=== PATIENT | female | born 1990 | race Caucasian/White ===

== ENCOUNTER 2016-11-07 19:16 | Emergency (ER) | payer OTHER ==
[2016-11-07 19:21] VITALS: BMI 26.6
[2016-11-07 19:49] VITALS: BP 109/53
[2016-11-07] MEDS ORDERED: PHENERGAN INJ 25 MG IV ONE (19:52)
[2016-11-07] MEDS ORDERED: DEMEROL INJ IVP ONE ×2 (19:52→23:29)
--- NOTE | 2016-11-07 19:55 | ED.ABDFE ---
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 - Complaint Chief Complaint:: RIGHT SIDED ABD PAIN, NAUSEA FOR 1 HOUR. - Source History Provided: Patient - Mode of arrival Mode of Arrival: Ambulatory - Timing Onset of Chief Complaint: 11/07/16 PMH - PMH Past Medical History: No Past Surgical History: Yes Surgical History: Cholecystectomy, [employer] Surgery - Family History History of Family Medical Conditions: No Family Medical History: [place], Coronary Artery Disease, Hypertension - Social History Does patient currently use any type of tobacco product: No Have you used tobacco products in the last 12 months: No Type of Tobacco Use: None Does any household member use tobacco: No Alcohol Use: None Do you use any recreational Drugs:: No Lives With: Family Lives Where: Home - infectious screening Have you traveled outside the country in the last 6 months?: No Isolation: Standard ROS - Review of Systems Constitutional: Fever, Malaise Respiratoy: No Symptoms Reported Cardiovascular: No Symptoms Reported Gastrointestinal/Abdominal: See HPI Genitourinary: No Symptoms Reported Neurological: No Symptoms Reported Integumentary: No Symptoms Reported PE - Vital Signs Vitals: Temperature 98.1 F Pulse Rate 75 Respiratory Rate 16 Blood Pressure [Right Arm] 102/53 Blood Pressure [Left Arm] 99/64 Blood Pressure 109/53 O2 Sat by Pulse Oximetry 97 - General Limitations: No Limitations General Appearance: In Distress (mild pain) - Head Head Exam: Normal Inspection - Eyes Eye exam: Normal Appearance - Neck Neck Exam: Normal Inspection - Chest Chest Inspection: Normal Inspection - Respiratory Respiratory Exam: Normal Lung Sounds Bilat Respiratory Exam: Bilateral Clear to Auscultation - Cardiovascular Cardiovascular Exam: Regular Rate, Normal Rhythm - Abdominal Exam Abdominal Exam: Normal Inspection, Normal Bowel Sounds, Soft Abdominal Tenderness: RLQ, Suprapubic, Moderate - Extremeties Extremities Exam: Normal Inspection Course - Reevaluation 1st: Improved (pain still /) ROR - Labs Reviewed Result Diagrams: 11/07/16 20:10 11/07/16 20:10 Laboratory: WBC 9.0 X10^3/uL (3.6-10.0) 11/07/16 20:10 RBC 4.83 X10^6/uL (3.5-5.4) 11/07/16 20:10 Hgb 14.1 g/dL (12.0-16.0) 11/07/16 20:10 Hct 42.1 % (36.0-47.0) 11/07/16 20:10 MCV 87.2 fL (80.0-100.0) 11/07/16 20:10 MCH 29.1 pg (27.0-34.0) 11/07/16 20:10 MCHC 33.4 g/dL (33.0-35.0) 11/07/16 20:10 RDW 15.6 % (11.6-16.5) 11/07/16 20:10 Plt Count 208 X10^3/uL (150.0-450.0) 11/07/16 20:10 MPV 7.7 fL (7.4-11.0) 11/07/16 20:10 Neut % 63.2 % (42.0-75.0) 11/07/16 20:10 Lymph % 26.8 % (21.0-51.0) 11/07/16 20:10 [place] % 7.0 % (0.0-13.0) 11/07/16 20:10 Eos % 2.7 % (0.9-2.9) 11/07/16 20:10 Baso % 0.3 % (0.2-1.0) 11/07/16 20:10 Neut # 5.7 x10^3/uL (2.2-4.8) H 11/07/16 20:10 Lymph # 2.4 X10^3/uL (1.3-2.9) 11/07/16 20:10 [place] # 0.6 x10^3/uL (0.3-0.8) 11/07/16 20:10 Eos # 0.2 x10^3/uL (0.0-0.2) 11/07/16 20:10 Baso # 0.0 X10^3/uL (0.0-0.1) 11/07/16 20:10 Absolute Nucleated RBC 0.0 /100WBC 11/07/16 20:10 Sodium 144 mmol/L (136-145) 11/07/16 20:10 Corrected Sodium TNP 11/07/16 20:10 Potassium 3.5 mmol/L (3.5-5.1) 11/07/16 20:10 Chloride 108 mmol/L (98-107) H 11/07/16 20:10 Carbon Dioxide 24.9 mmol/L (21-32) 11/07/16 20:10 BUN 14 mg/dL (7-18) 11/07/16 20:10 Creatinine 0.69 mg/dL (0.55-1.02) 11/07/16 20:10 Est GFR (MDRD) Af Amer > 60 (>60) 11/07/16 20:10 Est GFR (MDRD) Non-Af > 60 (>60) 11/07/16 20:10 Glucose 105 mg/dL (65-99) H 11/07/16 20:10 Calcium 8.8 mg/dL (8.5-10.1) 11/07/16 20:10 Corrected Calcium TNP 11/07/16 20:10 Total Bilirubin 0.30 mg/dL (0.2-1.0) 11/07/16 20:10 AST 12 Units/L (15-37) L 11/07/16 20:10 ALT 18 Units/L (12-78) 11/07/16 20:10 Alkaline Phosphatase 70 Units/L (46-116) 11/07/16 20:10 Total Protein 7.6 g/dL (6.4-8.2) 11/07/16 20:10 Albumin 4.1 g/dL (3.4-5.0) 11/07/16 20:10 Globulin 3.5 g/dL (2.5-4.5) 11/07/16 20:10 Albumin/Globulin Ratio 1.2 Ratio (1.1-2.1) 11/07/16 20:10 - XRAY XRAY Interpreted by: Radiologist (sigmoid/descending colitis) - Diagnosis Discharge Problem: Colitis, acute - Discharge Plan Disposition: HOME, SELF-CARE Condition: Stable Prescriptions: Hydrocodone-Acet 5 mg/325 mg [NORCO 5 MG/325 MG *] 1 tab PO Q6H PRN #12 tab PRN Reason: Pain Metronidazole [Flagyl Tab 500 mg] 500 mg PO TID #30 tab Promethazine HCl [PHENERGAN TAB 25 MG *] 25 mg PO Q8H PRN #12 tab PRN Reason: Nausea/Vomiting - Follow ups/Referrals Follow ups/Referrals: NFD,None [Primary Care Provider] - 3 days GUSTAVO YAP [STAFF PHYSICIAN] - 3 days - Instructions Instructions: Colitis Additional Instructions: push fluids
[2016-11-07] MEDS ORDERED: PHENERGAN INJ 25 MG ONE (20:04)
[2016-11-07] MEDS ORDERED: DEMEROL INJ ONE ×2 (20:05→23:31)
[2016-11-07 20:19] LABS: BASOPHILS % (AUTO) 0.3 % (0.2-1.0); EOSINOPHILS # (AUTO) 0.2 x10^3/uL (0.0-0.2); EOSINOPHILS % (AUTO) 2.7 % (0.9-2.9); HEMATOCRIT 42.1 % (36.0-47.0); HEMOGLOBIN 14.1 g/dL (12.0-16.0); LYMPHOCYTES # (AUTO) 2.4 X10^3/uL (1.3-2.9); LYMPHOCYTES % (AUTO) 26.8 % (21.0-51.0); MEAN CORPUSCULAR HEMOGLOBIN 29.1 pg (27.0-34.0); MEAN CORPUSCULAR HGB CONC 33.4 g/dL (33.0-35.0); MEAN CORPUSCULAR VOLUME 87.2 fL (80.0-100.0); MEAN PLATELET VOLUME 7.7 fL (7.4-11.0); MONOCYTES # (AUTO) 0.6 x10^3/uL (0.3-0.8); NEUTROPHILS # (AUTO) 5.7 x10^3/uL (2.2-4.8); NEUTROPHILS % (AUTO) 63.2 % (42.0-75.0); PLATELET COUNT 208 X10^3/uL (150.0-450.0); RED BLOOD COUNT 4.83 X10^6/uL (3.5-5.4); RED CELL DISTRIBUTION WIDTH 15.6 % (11.6-16.5)
[2016-11-07 20:35] LABS: ALANINE AMINOTRANSFERASE 18 Units/L (12-78); ALBUMIN 4.1 g/dL (3.4-5.0); ALKALINE PHOSPHATASE 70 Units/L (46-116); ASPARTATE AMINO TRANSFERASE 12 Units/L (15-37); BLOOD UREA NITROGEN 14 mg/dL (7-18); CALCIUM 8.8 mg/dL (8.5-10.1); CARBON DIOXIDE 24.9 mmol/L (21-32); CHLORIDE 108 mmol/L (98-107); CREATININE 0.69 mg/dL (0.55-1.02); GLUCOSE 105 mg/dL (65-99); SODIUM 144 mmol/L (136-145); TOTAL PROTEIN 7.6 g/dL (6.4-8.2); eGFR BLACK RACES > 60 (>60); eGFR NON BLACK RACES > 60 (>60)
[2016-11-07] MEDS ORDERED: NS 100 ML IV 100 ML IV ONE (22:19)
--- NOTE | 2016-11-07 23:18 | CT ---
CT abdomen and pelvis with contrast Indication: Right lower quadrant pain and nausea. Technique: Helical images through the abdomen and pelvis after IV and oral contrast per protocol. Co felipe and sagittal reformats provided. Findings: Limited images through lower chest shows no acute abnormality. Review of bone windows show s no osseous lesion. Abdomen: The liver, spleen and pancreas are normal. The gallbladder is absent. The adrenal glands ar e normal. Stomach and small bowel are normal without obstruction to the flow of contrast seen. Vascu lature is normal. Kidneys are normal with small left renal cyst incidentally noted. There is hyper enhancement of the rectum and sigmoid colon minimally. The left ureter is prominent. No obstructing stone seen. Pelvis: The urinary bladder and rectum are normal. Uterus adnexae show no acute abnormality. She the appendix is normal. Impression: 1. Mild hyper enhancement of the rectum wall suggest colitis. Correlate clinically. Similar findings are seen in the sigmoid and descending colon. 2. Normal appendix. 3. Prominence of the left ureter without obstructing lesion. Vesicoureteral reflux is possible. Reported By:
[2016-11-07] MEDS ORDERED: FLAGYL IV PREMIX 500 MG BAG 500 MG/100 ML BAG IV ONE ×2 (23:29→23:31)
== END 2016-11-08 00:28 | disposition home or self-care (01) ==
LOC: ER 19:16
DX: K52.89 Other specified noninfective gastroenteritis and colitis (principal); R10.31 Right lower quadrant pain
CPT/HCPCS: 36415; 74177; 80053; 85025; 96365; 96374; 96375; 99283; A4222; S0030; J2175; J2550

== ENCOUNTER 2016-11-16 01:28 | Emergency (ER) | payer OTHER ==
[2016-11-16 01:33] VITALS: BP 125/62; BMI 26.6
--- NOTE | 2016-11-16 01:56 | DR.GENAD ---
HPI - PCP Primary Care Physician: NFD - Complaint/Symptoms Chief Complaint Doctors Comments: Agree with statement, she denies a history of cardiopulmonary disease. She admtis to a history of anxiety. Patient has two children youngest is four months old. Father of child lives in [place], comes around every now and then. Her other child has different dad. one has no contact with patient nor child. Chief Complaint:: PT STATES SHE IS HAVING SHARP, CONSTANT CHEST PAIN ON THE LEFT SIDE. PT STATES PAIN IS RADIATING INTO HER BACK. PT STATES IT HURTS TO BREATHE. 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 - Family History History of Family Medical Conditions: Yes Family Medical History: [place], Coronary Artery Disease, Hypertension - Social History Type of Tobacco Use: Cigarettes Alcohol Use: None Do you use any recreational Drugs:: No Lives With: Family Lives Where: Home - infectious screening In the last 2 months have you had wt loss of >10#?: NO Have you had fever, night sweats or hemotysis?: No Have you traveled outside the country in the last 6 months?: No Isolation: Standard ROS - Review of Systems Eyes: No Symptoms Reported ENTM: No Symptoms Reported Respiratoy: No Symptoms Reported Cardiovascular: No Symptoms Reported Gastrointestinal/Abdominal: No Symptoms Reported Genitourinary: No Symptoms Reported Neurological: No Symptoms Reported Musculoskeletal: No Symptoms Reported Integumentary: No Symptoms Reported Hematologic/Lymphatic: No Symptoms Reported Endocrine: No Symptoms Reported Psychiatric: No Symptoms Reported All Other Systems: Reviewed and Negative PE - Vital Signs Vitals: Temperature 98.3 F Pulse Rate 78 Respiratory Rate 22 Blood Pressure [Right Arm] 102/53 Blood Pressure [Left Arm] 99/64 Blood Pressure 125/62 O2 Sat by Pulse Oximetry 98 - General Limitations: No Limitations General Appearance: Alert, In No Apparent Distress - Eyes Eye exam: Normal Appearance, PERRL, EOMI - ENT ENT Exam: Normal Exam, Normal Oropharynx External Ear Exam: Normal External Inspection TM/Canal Exam: Bilateral Normal Nose Exam: Normal Nose Exam Mouth Exam: Normal Inspection Throat Exam: Normal Inspection - Neck Neck Exam: Normal Inspection - Chest Chest Inspection: Normal Inspection - Respiratory Respiratory Exam: Normal Lung Sounds Bilat Respiratory Exam: Bilateral Clear to Auscultation - Cardiovascular Cardiovascular Exam: Regular Rate, Normal Rhythm - Abdominal Exam Abdominal Exam: Normal Inspection, Normal Bowel Sounds Abdominal Tenderness: negative: RUQ, RLQ, LUQ, LLQ, Epigastrium, Suprapubic, Diffuse, Mild, Moderate, Severe, Other - Extremities Extremities Exam: Normal Inspection - Back Back Exam: Normal Inspection, Full ROM - Neurologic Neurological Exam: Alert, Oriented X3, CN II-XII Intact - Skin Skin Exam: Warm, Dry, Intact Course - Reevaluation 1st: Improved ROR - Labs Reviewed Result Diagrams: 11/16/16 02:05 11/16/16 02:05 Laboratory: WBC 10.2 X10^3/uL (3.6-10.0) H 11/16/16 02:05 RBC 4.89 X10^6/uL (3.5-5.4) 11/16/16 02:05 Hgb 14.2 g/dL (12.0-16.0) 11/16/16 02:05 Hct 42.6 % (36.0-47.0) 11/16/16 02:05 MCV 87.0 fL (80.0-100.0) 11/16/16 02:05 MCH 29.0 pg (27.0-34.0) 11/16/16 02:05 MCHC 33.3 g/dL (33.0-35.0) 11/16/16 02:05 RDW 15.0 % (11.6-16.5) 11/16/16 02:05 Plt Count 211 X10^3/uL (150.0-450.0) 11/16/16 02:05 MPV 7.9 fL (7.4-11.0) 11/16/16 02:05 Neut % 52.6 % (42.0-75.0) 11/16/16 02:05 Lymph % 36.7 % (21.0-51.0) 11/16/16 02:05 [place] % 6.2 % (0.0-13.0) 11/16/16 02:05 Eos % 3.9 % (0.9-2.9) H 11/16/16 02:05 Baso % 0.6 % (0.2-1.0) 11/16/16 02:05 Neut # 5.3 x10^3/uL (2.2-4.8) H 11/16/16 02:05 Lymph # 3.7 X10^3/uL (1.3-2.9) H 11/16/16 02:05 [place] # 0.6 x10^3/uL (0.3-0.8) 11/16/16 02:05 Eos # 0.4 x10^3/uL (0.0-0.2) H 11/16/16 02:05 Baso # 0.1 X10^3/uL (0.0-0.1) 11/16/16 02:05 Absolute Nucleated RBC 0.1 /100WBC 11/16/16 02:05 D-Dimer 767 ng/mL (0-400) H* 11/16/16 02:05 Sodium 143 mmol/L (136-145) 11/16/16 02:05 Corrected Sodium TNP 11/16/16 02:05 Potassium 4.0 mmol/L (3.5-5.1) 11/16/16 02:05 Chloride 107 mmol/L (98-107) 11/16/16 02:05 Carbon Dioxide 24.6 mmol/L (21-32) 11/16/16 02:05 BUN 11 mg/dL (7-18) 11/16/16 02:05 Creatinine 0.74 mg/dL (0.55-1.02) 11/16/16 02:05 Est GFR (MDRD) Af Amer > 60 (>60) 11/16/16 02:05 Est GFR (MDRD) Non-Af > 60 (>60) 11/16/16 02:05 Glucose 85 mg/dL (65-99) 11/16/16 02:05 Calcium 9.0 mg/dL (8.5-10.1) 11/16/16 02:05 - XRAY XRAY Interpreted by: Radiologist (Chest: negative, CTA no evidence of blood clot ) - Diagnosis Discharge Problem: Anxiety and depression - Discharge Plan Condition: Stable - Follow ups/Referrals Follow ups/Referrals: NFD,None [Primary Care Provider] - 3 days - Instructions
[2016-11-16] MEDS ORDERED: DUONEB 0.5 MG/3 MG NEB ONE (01:58)
[2016-11-16] MEDS ORDERED: NS 1000 ML 1,000 ML ONE (02:02)
[2016-11-16] MEDS ORDERED: DUONEB 0.5 MG/3 MG ONE (02:10)
[2016-11-16 02:24] LABS: BASOPHILS # (AUTO) 0.1 X10^3/uL (0.0-0.1); BASOPHILS % (AUTO) 0.6 % (0.2-1.0); EOSINOPHILS # (AUTO) 0.4 x10^3/uL (0.0-0.2); EOSINOPHILS % (AUTO) 3.9 % (0.9-2.9); HEMATOCRIT 42.6 % (36.0-47.0); HEMOGLOBIN 14.2 g/dL (12.0-16.0); LYMPHOCYTES # (AUTO) 3.7 X10^3/uL (1.3-2.9); LYMPHOCYTES % (AUTO) 36.7 % (21.0-51.0); MEAN CORPUSCULAR HGB CONC 33.3 g/dL (33.0-35.0); MEAN PLATELET VOLUME 7.9 fL (7.4-11.0); MONOCYTES # (AUTO) 0.6 x10^3/uL (0.3-0.8); MONOCYTES % (AUTO) 6.2 % (0.0-13.0); NEUTROPHILS # (AUTO) 5.3 x10^3/uL (2.2-4.8); NEUTROPHILS % (AUTO) 52.6 % (42.0-75.0); PLATELET COUNT 211 X10^3/uL (150.0-450.0); RED BLOOD COUNT 4.89 X10^6/uL (3.5-5.4); WHITE BLOOD COUNT 10.2 X10^3/uL (3.6-10.0)
[2016-11-16 02:26] LABS: BLOOD UREA NITROGEN 11 mg/dL (7-18); CARBON DIOXIDE 24.6 mmol/L (21-32); CHLORIDE 107 mmol/L (98-107); CREATININE 0.74 mg/dL (0.55-1.02); GLUCOSE 85 mg/dL (65-99); SODIUM 143 mmol/L (136-145); eGFR BLACK RACES > 60 (>60); eGFR NON BLACK RACES > 60 (>60)
--- NOTE | 2016-11-16 02:35 | RAD ---
EXAM: Chest X-ray INDICATION: Chest pain COMPARISION: No recent prior TECHNIQUE: PA and Lat, 2 view FINDINGS: The lungs are clear and the lung volumes are within normal limits. No pleural effusion or pneumothor ax. The cardiac silhouette and mediastinum are normal. The regional skeleton is intact. IMPRESSION: Normal Chest X-Ray Reported By:
[2016-11-16] MEDS ORDERED: ATIVAN INJ 2 MG VIAL IVP ONE (02:47)
[2016-11-16 02:52] LABS: D DIMER 767 ng/mL (0-400)
[2016-11-16] MEDS ORDERED: ATIVAN INJ 2 MG VIAL ONE (02:54)
[2016-11-16] MEDS ORDERED: NS 1000 ML 1,000 ML IV SCH (03:00)
[2016-11-16] MEDS ORDERED: NS 100 ML IV 100 ML IV ONE (03:15)
--- NOTE | 2016-11-16 03:45 | CT ---
EXAM: CTA CHEST WITH CONTRAST INDICATION: Chest pain and shortness of breath COMPARISION: No priors for comparison TECHNIQUE: Spiral CT of the chest was performed with contrast. Thin reconstructions in the axial and para-coron al planes were obtained as well as 3D reconstructions. The patient received intravenous contrast wi thout adverse reaction. FINDINGS: The heart size is normal. There is no evidence of a pulmonary embolism. The aorta is normal in calib er. No evidence of dissection or aneurysm. No mediastinal or hilar mass or adenopathy. The lungs are clear. No evidence of bullous disease or pulmonary fibrosis. No lung mass, consolidati on, or suspicious pulmonary nodule. No pleural effusion or pneumothorax identified. The regional ske leton is intact. IMPRESSION: Normal CT angiogram of the chest Reported By:
== END 2016-11-16 04:31 | disposition home or self-care (01) ==
LOC: ER 01:28
DX: F41.8 Other specified anxiety disorders (principal); F32.89 Other specified depressive episodes
CPT/HCPCS: 36415; 71020; 71275; 80048; 85025; 85378; 96365; 96367; 96374; 99283; A4222; J2060; J7620

== ENCOUNTER → 2017-02-28 | Outpatient (CLI) | payer OTHER ==
--- NOTE | 2017-02-28 12:12 | US ---
HISTORY: Abnormal thyroid function test Study: Thyroid sonogram Comparison: None Technique: Multiple grayscale sonographic images were obtained. Findings: The right lobe measured 4.4 x 1.2 x 1.3 centimeters, the isthmus 3.5 millimeters. And the left lobe 4.5 x 1.3 x 1.5 centimeters. No nodules cysts or masses are noted in the right lobe or the isthmus. Within the left thyroid lobe there is a 7.6 x 10.2 millimeter by 1.45 centimeter complex nodule whic h does not quite yet meet the criteria for fine needle aspiration. There are no associated small wayne cification. The nodule is not hypervascular . Follow up ultrasound in 6 months is recommended for re -evaluation. IMPRESSION: 7.6 x 10.2 x 14.5 millimeter complex left thyroid nodule which does not yet meet criteria for fine n eedle aspiration which should be followed sonographically in 6 months. Reported By:
== END ==
LOC: RAD 10:32
PROVIDERS: ATTEND Nurse Practitioner Family
DX: R94.6 Abnormal results of thyroid function studies (principal)
CPT/HCPCS: 76536

== ENCOUNTER 2017-03-29 10:54 | Emergency (ER) | payer OTHER ==
[2017-03-29 10:58] VITALS: BP 114/67; BMI 26.6
[2017-03-29] MEDS ORDERED: TORADOL 60 MG VIAL IM ONE (12:43)
[2017-03-29] MEDS ORDERED: TORADOL 60 MG VIAL ONE (12:45)
--- NOTE | 2017-03-29 12:47 | DR.GENAD ---
HPI - PCP Primary Care Physician: PATRICE - Complaint/Symptoms Chief Complaint Doctors Comments: Patient states she got angry with her old man and hit the door with her right hand. Chief Complaint:: "RIGHT HAND HURTING AFTER PUNCHING A DOOR" - Source History Provided: Patient - Mode of Arrival Mode of Arrival: Ambulatory - Timing Onset of Chief Complaint: 03/29/17 PMH - PMH Past Medical History: Yes Past Medical History: Anxiety Past Surgical History: Yes Surgical History: , Cholecystectomy Past Surgical History Comment: CYST REMOVED - Family History History of Family Medical Conditions: Yes Family Medical History: Diabetes Mellitus, Cancer, [place], Coronary Artery Disease, Heart Failure, Sudden Cardiac , Hypertension - Social History Does patient currently use any type of tobacco product: Yes Have you used tobacco products in the last 12 months: Yes Type of Tobacco Use: Cigarettes How many years tobacco product used: 2 Does any household member use tobacco: No Alcohol Use: None Do you use any recreational Drugs:: No Lives With: Family Lives Where: Home - infectious screening In the last 2 months have you had wt loss of >10#?: NO Have you had fever, night sweats or hemotysis?: No Have you traveled outside the country in the last 6 months?: No Isolation: Standard ROS - Review of Systems Eyes: No Symptoms Reported ENTM: No Symptoms Reported Respiratoy: No Symptoms Reported Cardiovascular: No Symptoms Reported Gastrointestinal/Abdominal: No Symptoms Reported Genitourinary: No Symptoms Reported Neurological: No Symptoms Reported Musculoskeletal: No Symptoms Reported, Hand (right dorsum lateral three digits tender and discolored) Integumentary: No Symptoms Reported Hematologic/Lymphatic: No Symptoms Reported Endocrine: No Symptoms Reported Psychiatric: No Symptoms Reported All Other Systems: Reviewed and Negative PE - Vital Signs Vitals: Temperature 98.6 F Pulse Rate 80 Respiratory Rate 20 Blood Pressure [Right Arm] 102/53 Blood Pressure [Left Arm] 99/64 Blood Pressure 114/67 O2 Sat by Pulse Oximetry 99 - General General Appearance: Alert, In No Apparent Distress - Head Head Exam: Normal Inspection, Atraumatic - Eyes Eye exam: Normal Appearance, PERRL, EOMI - ENT ENT Exam: Normal Exam External Ear Exam: Normal External Inspection TM/Canal Exam: Bilateral Normal Nose Exam: Normal Nose Exam Mouth Exam: Normal Inspection Throat Exam: Normal Inspection - Neck Neck Exam: Normal Inspection - Chest Chest Inspection: Normal Inspection - Respiratory Respiratory Exam: Normal Lung Sounds Bilat Respiratory Exam: Bilateral Clear to Auscultation - Cardiovascular Cardiovascular Exam: Regular Rate, Normal Rhythm - Extremities Extremities Exam: Normal Inspection, Full ROM - Back Back Exam: Normal Inspection, Full ROM - Neurologic Neurological Exam: Alert, Oriented X3, CN II-XII Intact - Psychiatric Psychiatric Exam: Normal Affect - Skin Skin Exam: Warm, Dry, Other (bluish discoloration of dorsum right hand with edema) ROR - XRAY XRAY Interpreted by: Radiologist (Right hand: no fracture) - Diagnosis Discharge Problem: Contusion of hand, right Qualifiers: Encounter type: initial encounter Qualified Code(s): S60.221A - Contusion of right hand, initial encounter - Discharge Plan Condition: Stable - Follow ups/Referrals Follow ups/Referrals: NFD,None [Primary Care Provider] - 3 days - Instructions
--- NOTE | 2017-03-29 12:52 | RAD ---
HISTORY: Injury, blunt trauma Study: Right hand AP, lateral, obliques Comparison: None Findings: No acute cortical disruption or dislocation is identified. The soft tissues appear unremarkable. Th e carpal bones appear aligned without evidence for fracture. the joints are normal. IMPRESSION: 1. Negative exam. Reported By:
== END 2017-03-29 14:17 | disposition home or self-care (01) ==
LOC: ER 11:23
DX: S60.221A Contusion of right hand, initial encounter (principal); X58.XXXA Exposure to other specified factors, initial encounter; Y92.9 Unspecified place or not applicable
CPT/HCPCS: 73130; 96372; 99282; J1885

== ENCOUNTER 2017-07-18 15:18 | Emergency (ER) | payer OTHER ==
[2017-07-18 15:22] VITALS: BP 120/76; BMI 27.8
[2017-07-18] MEDS ORDERED: TORADOL 60 MG VIAL IM ONE (16:12)
[2017-07-18] MEDS ORDERED: TORADOL 60 MG VIAL ONE (16:14)
--- NOTE | 2017-07-18 16:20 | RAD ---
ELBOW RADIOGRAPHS CLINICAL HISTORY: 26-year-old female status post fall with left elbow pain COMPARISON: None. FINDINGS: 3 views of the left elbow demonstrate no acute fracture or malalignment. The joint spaces are maintained. There is no joint effusion. Mild edema about the elbow. The mineralization is normal . There is no aggressive bone lesion or abnormal periosteal reaction. There is no soft tissue calci fication or gas. IMPRESSION: No acute fracture or osseous abnormality demonstrated on left elbow radiographs with mild edema prese nt. Reported By:
--- NOTE | 2017-07-18 16:30 | DR.EXTPAIN ---
HPI - PCP Primary Care Physician: OCHOA - Complaint/Symptoms Chief Complaint:: PT C/O ROUGH HOUSING AND THAT SHE FELL ON HER LEFT ELBOW,,,, EDEMA NOTED NO OBVIOUS DEFOMITY NOTED . - Nurses notes reviewed Nurses Notes Review: Yes - Source History Provided: Patient - Mode of arrival Mode of Arrival: Ambulatory - Timing Onset of Chief Complaint: 07/18/17 PMH - PMH Past Medical History: Yes Past Medical History: Anxiety Past Surgical History: Yes Surgical History: , Cholecystectomy - Family History History of Family Medical Conditions: No Family Medical History: Diabetes Mellitus, Cancer, [place], Coronary Artery Disease, Heart Failure, Sudden Cardiac , Hypertension - Social History Does patient currently use any type of tobacco product: Yes Have you used tobacco products in the last 12 months: Yes Type of Tobacco Use: Cigarettes How many years tobacco product used: 1 Does any household member use tobacco: No Alcohol Use: None Do you use any recreational Drugs:: No Lives With: Family - infectious screening In the last 2 months have you had wt loss of >10#?: NO Have you had fever, night sweats or hemotysis?: No Have you traveled outside the country in the last 6 months?: No Isolation: Standard PE - Vital Signs Vitals: Temperature 97.2 F Pulse Rate 117 Respiratory Rate 18 Blood Pressure [Right Arm] 102/53 Blood Pressure [Left Arm] 99/64 Blood Pressure 120/76 O2 Sat by Pulse Oximetry 98 - Discharge Plan Condition: Stable Prescriptions: Ibuprofen [MOTRIN TAB 600 MG *] 600 mg PO TID PRN #20 tab PRN Reason: Pain/Inflammation Tramadol HCl 50 mg PO Q8H PRN #15 tablet PRN Reason: - Follow ups/Referrals Follow ups/Referrals: OCHOA REYEZ [Primary Care Provider] - 3 days - Instructions Instructions: Musculoskeletal Pain, Joint Pain, [id number] Additional Instructions: RETURN TO ED IF WORSE.
== END 2017-07-18 17:08 | disposition home or self-care (01) ==
LOC: ER 15:27
DX: M79.1 Myalgia (principal); M25.50 Pain in unspecified joint; W19.XXXA Unspecified fall, initial encounter; Y92.9 Unspecified place or not applicable
CPT/HCPCS: 73070; 96372; 99282; J1885

== ENCOUNTER 2017-10-16 22:50 | Emergency (ER) | payer OTHER ==
[2017-10-16 23:12] VITALS: BMI 26.4
[2017-10-16 23:32] LABS: BILIRUBIN,URINE NEGATIVE (NEGATIVE); BLOOD/HEMOGLOBIN,URINE 1+ (NEGATIVE); GLUCOSE, URINE NEGATIVE (NEGATIVE); KETONES,URINE 2+ (NEGATIVE); LEUKOCYTE ESTERASE ,URINE 1+ (NEGATIVE); NITRITES,URINE NEGATIVE (NEGATIVE); PROTEIN,URINE NEGATIVE (NEGATIVE); UROBILINOGEN,URINE NORMAL (NORMAL)
[2017-10-16 23:36] LABS: BASOPHILS # (AUTO) 0.1 X10^3/uL (0.0-0.1); BASOPHILS % (AUTO) 0.5 % (0.2-1.0); EOSINOPHILS # (AUTO) 0.1 x10^3/uL (0.0-0.2); EOSINOPHILS % (AUTO) 1.2 % (0.9-2.9); HEMATOCRIT 39.5 % (36.0-47.0); HEMOGLOBIN 13.4 g/dL (12.0-16.0); LYMPHOCYTES # (AUTO) 2.7 X10^3/uL (1.3-2.9); LYMPHOCYTES % (AUTO) 23.7 % (21.0-51.0); MEAN CORPUSCULAR HEMOGLOBIN 30.7 pg (27.0-34.0); MEAN CORPUSCULAR HGB CONC 33.9 g/dL (33.0-35.0); MEAN CORPUSCULAR VOLUME 90.7 fL (80.0-100.0); MEAN PLATELET VOLUME 7.6 fL (7.4-11.0); MONOCYTES # (AUTO) 0.7 x10^3/uL (0.3-0.8); MONOCYTES % (AUTO) 6.1 % (0.0-13.0); NEUTROPHILS # (AUTO) 7.9 x10^3/uL (2.2-4.8); NEUTROPHILS % (AUTO) 68.5 % (42.0-75.0); PLATELET COUNT 226 X10^3/uL (150.0-450.0); RED BLOOD COUNT 4.36 X10^6/uL (3.5-5.4); RED CELL DISTRIBUTION WIDTH 14.2 % (11.6-16.5); WHITE BLOOD COUNT 11.5 X10^3/uL (3.6-10.0)
[2017-10-16 23:41] LABS: APPEARANCE,URINE CLEAR (CLEAR); COLOR,URINE YELLOW (YELLOW)
[2017-10-16] MEDS ORDERED: NS 1000 ML 1,000 ML IV ONE (23:41)
[2017-10-16 23:42] LABS: BACTERIA,URINE TRACE /HPF (NEGATIVE); MUCUS,URINE FEW /HPF (NEGATIVE); SQUAMOUS EPITHELIAL CELL,UR FEW /HPF (NEGATIVE)
--- NOTE | 2017-10-16 23:46 | DR.GENAD ---
HPI - HPI Comment HPI Comment: A , 27 y/o female presenting with information of being aware of being 4 days ago. She developed suprapubic cramping 2 days ago. There is associated vagginal spotting- using 2 female pads per day. She does not remember date of her LNMP as she in on Depo-shots. Also, she quit smoking 4 days ago upon her home pregnacy test being positive. - Complaint/Symptoms Chief Complaint:: PT STATES" I JUST FOUND OUT I WAS A FEW DAYS AGO AND I'M HAVING ABD CRAMPING AND SPOTTING FOR 2 DAYS" - Nurses notes reviewed Nurses Notes Review: Yes - Source History Provided: Patient - Mode of Arrival Mode of Arrival: Ambulatory - Timing Onset of Chief Complaint: 10/14/17 PMH - PMH Past Medical History: Yes Past Medical History: Anxiety Past Surgical History: Yes Surgical History: , Cholecystectomy, [facility] Surgery - Family History History of Family Medical Conditions: Yes Family Medical History: Diabetes Mellitus, Cancer, [place], Coronary Artery Disease, Heart Failure, Sudden Cardiac , Hypertension - Social History Type of Tobacco Use: Cigarettes Does any household member use tobacco: Yes Alcohol Use: None Do you use any recreational Drugs:: No Lives With: Family Lives Where: Home - infectious screening In the last 2 months have you had wt loss of >10#?: NO Have you had fever, night sweats or hemotysis?: No Have you traveled outside the country in the last 6 months?: No Isolation: Standard ROS - Review of Systems Constitutional: No Symptoms Reported Eyes: No Symptoms Reported ENTM: No Symptoms Reported Respiratoy: No Symptoms Reported Cardiovascular: No Symptoms Reported Gastrointestinal/Abdominal: No Symptoms Reported Genitourinary: Other (pelvic cramps and aginal spotting.) Neurological: No Symptoms Reported Musculoskeletal: No Symptoms Reported Integumentary: No Symptoms Reported Hematologic/Lymphatic: No Symptoms Reported Endocrine: No Symptoms Reported Psychiatric: No Symptoms Reported PE - Vital Signs Vitals: Temperature 98.1 F Pulse Rate 87 Respiratory Rate 18 Blood Pressure [Right Arm] 102/53 Blood Pressure [Left Arm] 99/64 Blood Pressure 102/63 O2 Sat by Pulse Oximetry 99 - General Limitations: No Limitations General Appearance: Alert, In No Apparent Distress - Head Head Exam: Normal Inspection - Eyes Eye exam: Normal Appearance - ENT ENT Exam: Normal Exam - Neck Neck Exam: Normal Inspection - Chest Chest Inspection: Normal Inspection - Respiratory Respiratory Exam: Normal Lung Sounds Bilat - Cardiovascular Cardiovascular Exam: Regular Rate, Normal Rhythm, +S1, +S2 - Abdominal Exam Abdominal Exam: Normal Inspection, Normal Bowel Sounds, Soft - Extremities Extremities Exam: Normal Inspection - Back Back Exam: Normal Inspection - Neurologic Neurological Exam: Alert, Oriented X3 - Psychiatric Psychiatric Exam: Normal Affect, Normal Mood - Skin Skin Exam: Warm, Dry, Intact, Normal Color ROR - Labs Reviewed Result Diagrams: 10/16/17 23: Laboratory: WBC 11.5 X10^3/uL (3.6-10.0) H 10/16/17 23: RBC 4.36 X10^6/uL (3.5-5.4) 10/16/17 23: Hgb 13.4 g/dL (12.0-16.0) 10/16/17 23: Hct 39.5 % (36.0-47.0) 10/16/17 23: MCV 90.7 fL (80.0-100.0) 10/16/17 23: MCH 30.7 pg (27.0-34.0) 10/16/17 23: MCHC 33.9 g/dL (33.0-35.0) 10/16/17 23: RDW 14.2 % (11.6-16.5) 10/16/17 23: Plt Count 226 X10^3/uL (150.0-450.0) 10/16/17 23: MPV 7.6 fL (7.4-11.0) 10/16/17 23: Neut % (Auto) 68.5 % (42.0-75.0) 10/16/17 23: Lymph % (Auto) 23.7 % (21.0-51.0) 10/16/17 23: Mason % (Auto) 6.1 % (0.0-13.0) 10/16/17 23: Eos % (Auto) 1.2 % (0.9-2.9) 10/16/17 23:25 Baso % (Auto) 0.5 % (0.2-1.0) 10/16/17 23: Neut # (Auto) 7.9 x10^3/uL (2.2-4.8) H 10/16/17 23:25 Lymph # (Auto) 2.7 X10^3/uL (1.3-2.9) 10/16/17 23:25 Mason # (Auto) 0.7 x10^3/uL (0.3-0.8) 10/16/17 23:25 Eos # (Auto) 0.1 x10^3/uL (0.0-0.2) 10/16/17 23:25 Baso # (Auto) 0.1 X10^3/uL (0.0-0.1) 10/16/17 23:25 Absolute Nucleated RBC 0.0 /100WBC 10/16/17 23: HCG, Quant [id number] mIU/mL (0-6) H 10/16/17 23:25 Specimen Type Clean catch urine 10/16/17 23:23 Urine Color Yellow (YELLOW) 10/16/17 23: Urine Appearance Clear (CLEAR) 10/16/17 23: Urine pH 7.0 (5.0 - 8.0) 10/16/17 23:23 Ur Specific [place] 1.015 (1.000-1.030) 10/16/17 23: Urine Protein Negative (NEGATIVE) 10/16/17 23: Urine Glucose (UA) Negative (NEGATIVE) 10/16/17 23: Urine Ketones 2+ (NEGATIVE) 10/16/17 23:23 Urine Occult Blood 1+ (NEGATIVE) 10/16/17 23: Urine Nitrite Negative (NEGATIVE) 10/16/17 23: Urine Bilirubin Negative (NEGATIVE) 10/16/17 23:23 Urine Urobilinogen Normal (NORMAL) 10/16/17 23:23 Ur Leukocyte Esterase 1+ (NEGATIVE) 10/16/17 23:23 Urine RBC 3-5 /HPF (NONE SEEN) 10/16/17 23:23 Urine WBC 0-2 /HPF (NONE SEEN) 10/16/17 23:23 Ur Squamous Epith Cells Few /HPF (NEGATIVE) 10/16/17 23:23 Urine Bacteria Trace /HPF (NEGATIVE) 10/16/17 23:23 Urine Mucus Few /HPF (NEGATIVE) 10/16/17 23:23 Ur Culture Indicated? No/not indicated 10/16/17 23:23 - Diagnosis Discharge Problem: Vaginal bleeding in patient at less than 20 weeks gestation - Discharge Plan Disposition: 01 HOME, SELF-CARE Condition: Stable - Follow ups/Referrals Follow ups/Referrals: NFD,None [Primary Care Provider] - 3 days - Instructions Instructions: Vaginal Bleeding During , First Trimester, [id number]
[2017-10-17] MEDS ORDERED: NS 1000 ML 1,000 ML ONE
[2017-10-17 00:51] VITALS: BP 108/68
== END 2017-10-17 00:51 | disposition home or self-care (01) ==
LOC: ER 22:50
DX: O20.9 Hemorrhage in early pregnancy, unspecified (principal); Z3A.00 Weeks of gestation of pregnancy not specified
CPT/HCPCS: 36415; 81001; 84702; 85025; 99282; A4222